=== PATIENT | female | born 1975 | race Caucasian/White ===

== ENCOUNTER 2017-03-08 03:20 | Emergency (ER) | payer OTHER ==
[~2017-03-08] VITALS: Ht 152.4 cm; Wt 40.9 kg
[~2017-03-08 03:20] MED LIST: AMOXICILLIN 50500 MG PO; CEPHALEXIN250 M1 PO; D-31000 IU PO; DOXYCYCLINE 10100 MG PO; FLEXERIL 1010 MG/TAB PO; FLEXERIL5 MG PO; LORTAB 5/500 501 TAB PO; MAXALT5 MG PO; NAPROSYN500 MG PO; NO HOME MEDICATIONS; NORCO 325 MG-51 TAB PO; PEN-VEE K500 MG PO; PHENERGAN 25 TA25 MG PO; PREDNISONE20 MG PO; PRENATAL1 TA2 PO; PROAIR HFA0.09 MG/AC IH; PROVENTIL0.09 MG/A1 IH; ULTRAM 50MG TAB50 MG PO; VENTOLIN0.09 MG IH; VICODIN 5/5001 UDTAB PO; ZITHROMAX Z PA250 MG PO; ZOFRAN 4MG T4 MG/TAB PO
[2017-03-08 03:21] VITALS: TEMP 98
[2017-03-08 03:51] LABS: BASO # 0.1 (0.0-0.2); BASO % 0.9 % (0.0-2.0); EOS % 0.3 % (0-4.0); GRAN # 3.8 (1.4-6.5); HEMOGLOBIN 12.4 g/dl (12.5-16.0); LYMPH # 4.9 (1.2-3.4); LYMPH % 50.4 % (20.0-51.0); MEAN CELL VOLUME 93 fl (80.0-100.0); MEAN CORPUSCULAR HEMOGLOBIN 31 pg (27.0-31.0); MEAN CORPUSCULAR HGB CONC 34 g/dl (33.0-37.0); MEAN PLATELET VOLUME 10.7 fl (7.4-10.4); MONO # 0.9 (0.1-0.6); MONO % 9.3 % (1.7-9.3); PLATELET COUNT 299 K/mm3 (130-400); RED BLOOD COUNT 3.96 M/mm3 (4.10-5.30); REDCELL DISTRIBUTION WIDTH-CV 13.2 % (11.5-14.5); WHITE BLOOD COUNT 9.8 K/mm3 (4.8-10.8)
[2017-03-08 03:53] LABS: HEMATOCRIT 36.9 % (37.0-47.0)
[2017-03-08 04:02] LABS: ADJUSTED CALCIUM 8.7 mg/dL (8.4-10.2); ALANINE AMINOTRANSFERASE 20 U/L (9-52); ALBUMIN 4.3 gm/dL (3.5-5.0); ALKALINE PHOSPHATASE 92 U/L (50-136); ANION GAP 13 mmol/L (7-16); BILIRUBIN,TOTAL 0.6 mg/dL (0.0-1.0); BLOOD UREA NITROGEN 7 mg/dL (7-17); CALCIUM 8.9 mg/dL (8.4-10.2); CARBON DIOXIDE 26 mmol/L (22-30); CHLORIDE 103 mmol/L (98-107); CREATININE, serum 0.61 mg/dL (0.52-1.25); GLUCOSE 108 mg/dL (74-106); LIPASE 183 U/L (23-300); POTASSIUM 3.3 mmol/L (3.4-5.0); SODIUM 142 mmol/L (137-145); TOTAL PROTEIN 7.6 gm/dL (6.4-8.2)
[2017-03-08 04:11] LABS: PH 6 (5-8); SQUAMOUS EPITHELIAL 0-2 /hpf; URINE APPEARANCE Clear; URINE BACTERIA None Seen /hpf; URINE BILIRUBIN Negative (NEGATIVE); URINE BLOOD Negative (NEGATIVE); URINE COLOR Straw; URINE GLUCOSE Negative (NEGATIVE); URINE KETONE Negative (NEGATIVE); URINE RBC 0-2 /hpf; URINE UROBILINOGEN Negative (NEGATIVE); URINE WBC 0-2 /hpf
[2017-03-08 04:41] LABS: B-TYPE NATRIURETIC PEPTIDE 30 pg/mL (0-125); TROPONIN-I < 0.012 ng/mL (0.000-0.034)
[2017-03-08] MEDS ORDERED: NORCO 325 MG-51 TAB PO (05:29)
[2017-03-08 05:48] VITALS: BP 96/54; PULSE 63
== END 2017-03-08 05:53 | disposition home or self-care (01) ==
LOC: COL.ER 03:20
PROVIDERS: Emergency Medicine
DX: R07.89 Other chest pain (principal); R07.1 Chest pain on breathing; K50.90 Crohn's disease, unspecified, without complications; F17.210 Nicotine dependence, cigarettes, uncomplicated; R06.02 Shortness of breath
CPT/HCPCS: J1885; J3010

== ENCOUNTER 2017-10-22 03:50 | Emergency (ER) | payer OTHER ==
[~2017-10-22] VITALS: Ht 144.8 cm; Wt 39.1 kg
[2017-10-22 03:54] VITALS: BP 114/68; TEMP 100.1
[2017-10-22 04:22] LABS: INFLUENZA A NEGATIVE; INFLUENZA B NEGATIVE
[2017-10-22] MEDS ORDERED: TAMIFLU 75MG75 MG PO (04:46)
[2017-10-22 05:19] VITALS: PULSE 99
== END 2017-10-22 05:19 | disposition home or self-care (01) ==
LOC: COL.ER 03:50
PROVIDERS: Emergency Medicine
DX: J11.1 Influenza due to unidentified influenza virus with other respiratory manifestations (principal); J45.909 Unspecified asthma, uncomplicated; K50.90 Crohn's disease, unspecified, without complications; F17.210 Nicotine dependence, cigarettes, uncomplicated

== ENCOUNTER 2018-03-11 05:32 | Emergency (ER) | payer OTHER ==
[~2018-03-11 05:32] MED LIST changes: +TAMIFLU 75MG75 MG PO
[2018-03-11 05:40] VITALS: TEMP 96.9
[2018-03-11] MEDS ORDERED: FLEXERIL 1010 MG/TAB PO (05:55)
[2018-03-11 07:28] VITALS: BP 106/57; PULSE 66
== END 2018-03-11 07:28 | disposition home or self-care (01) ==
LOC: COL.ER 05:32
DX: M54.2 Cervicalgia (principal); J45.909 Unspecified asthma, uncomplicated; Z87.19 Personal history of other diseases of the digestive system

== ENCOUNTER 2018-10-15 07:43 | Emergency (ER) | payer OTHER ==
[~2018-10-15] VITALS: Ht 144.8 cm; Wt 39.5 kg
[2018-10-15 07:48] VITALS: TEMP 97.8
[2018-10-15 08:26] VITALS: BP 112/55; PULSE 69
== END 2018-10-15 08:29 | disposition home or self-care (01) ==
LOC: COL.ER 07:43
DX: S20.211A Contusion of right front wall of thorax, initial encounter (principal); J45.909 Unspecified asthma, uncomplicated; K50.90 Crohn's disease, unspecified, without complications; F17.210 Nicotine dependence, cigarettes, uncomplicated; X50.0XXA Overexertion from strenuous movement or load, initial encounter

== ENCOUNTER 2019-04-15 08:11 | Emergency (ER) | payer OTHER ==
[~2019-04-15] VITALS: Ht 154.9 cm; Wt 40.9 kg
[2019-04-15 08:15] VITALS: BP 111/67; TEMP 98.6
[2019-04-15] MEDS ORDERED: AMOXICILLIN 8751 TAB PO (08:33)
[2019-04-15 08:52] VITALS: PULSE 70
== END 2019-04-15 08:52 | disposition home or self-care (01) ==
LOC: COL.ER 08:11
DX: K02.9 Dental caries, unspecified (principal)

== ENCOUNTER 2020-08-05 16:05 | Emergency (ER) | payer SELFPAY ==
[~2020-08-05] VITALS: Ht 154.9 cm; Wt 40.5 kg
[~2020-08-05 16:05] MED LIST changes: +AMOXICILLIN 8751 TAB PO
[2020-08-05 16:17] VITALS: BP 124/79; TEMP 98.6
[2020-08-05 17:58] VITALS: PULSE 82
== END 2020-08-05 17:59 | disposition home or self-care (01) ==
LOC: COL.ER 16:05
DX: R06.02 Shortness of breath (principal); Z20.828 Contact with and (suspected) exposure to other viral communicable diseases
CPT/HCPCS: J8540

== ENCOUNTER 2021-05-02 07:59 | Emergency (ER) | payer SELFPAY ==
[~2021-05-02] VITALS: Ht 154.9 cm; Wt 38.6 kg
[2021-05-02 08:09] VITALS: TEMP 98.5
[2021-05-02 08:31] LABS: COLLECTION METHOD CLEAN CATCH
[2021-05-02 08:40] LABS: MUCOUS Present /lpf; PH 6 (5-8); URINE APPEARANCE Hazy; URINE BACTERIA None Seen /hpf; URINE BILIRUBIN Negative (NEGATIVE); URINE BLOOD 1+ (NEGATIVE); URINE COLOR Yellow; URINE GLUCOSE Negative (NEGATIVE); URINE KETONE Negative (NEGATIVE); URINE LEUKOCYTE ESTERASE Negative (NEGATIVE); URINE NITRATE Negative (NEGATIVE); URINE PROTEIN(semi-quant) 1+ (NEGATIVE); URINE UROBILINOGEN >=4.0 mg/dL (NEGATIVE)
[2021-05-02 08:41] LABS: BASO # 0.1 (0.0-0.2); GRAN # 2.9 (1.4-6.5); GRAN % 55.7 % (42.2-75.2); HEMOGLOBIN 12.4 g/dl (12.5-16.0); LYMPH # 1.8 (1.2-3.4); LYMPH % 34.4 % (20.0-51.0); MEAN CELL VOLUME 91 fl (80.0-100.0); MEAN CORPUSCULAR HEMOGLOBIN 31 pg (27.0-31.0); MEAN CORPUSCULAR HGB CONC 34 g/dl (33.0-37.0); MEAN PLATELET VOLUME 10.7 fl (7.4-10.4); MONO # 0.4 (0.1-0.6); MONO % 8.5 % (1.7-9.3); PLATELET COUNT 283 K/mm3 (130-400); RED BLOOD COUNT 4.07 M/mm3 (4.10-5.30); REDCELL DISTRIBUTION WIDTH-CV 12.8 % (11.5-14.5)
[2021-05-02 09:05] LABS: ALBUMIN 4.2 gm/dL (3.5-5.0); BILIRUBIN,TOTAL 0.3 mg/dL (0.0-1.0); CALCIUM 8.7 mg/dL (8.4-10.2); CREATININE, serum 0.62 (0.52-1.25); TOTAL PROTEIN 7.7 gm/dL (6.4-8.2)
[2021-05-02 09:09] LABS: POTASSIUM 2.9 mmol/L (3.4-5.0)
[2021-05-02] MEDS ORDERED: PEPCID 20MG TAB20 MG PO (11:54)
[2021-05-02] MEDS ORDERED: ZOFRAN ODT4 MG PO (11:54)
[2021-05-02 12:10] VITALS: BP 116/60; PULSE 80
== END 2021-05-02 12:15 | disposition home or self-care (01) ==
LOC: COL.ER 07:59
PROVIDERS: Emergency Medicine
DX: E87.6 Hypokalemia (principal); J45.909 Unspecified asthma, uncomplicated; Z32.02 Encounter for pregnancy test, result negative
CPT/HCPCS: J2405; J7120

== ENCOUNTER 2021-05-09 12:18 | Emergency (ER) | payer SELFPAY ==
[~2021-05-09] VITALS: Ht 154.9 cm; Wt 38.2 kg
[~2021-05-09 12:18] MED LIST changes: +PEPCID 20MG TAB20 MG PO; +ZOFRAN ODT4 MG PO
[2021-05-09 12:24] VITALS: TEMP 98
[2021-05-09 12:52] LABS: HEMATOCRIT 38.4 % (37.0-47.0); HEMOGLOBIN 12.9 g/dl (12.5-16.0); MEAN CELL VOLUME 89 fl (80.0-100.0); MEAN CORPUSCULAR HEMOGLOBIN 30 pg (27.0-31.0); MEAN CORPUSCULAR HGB CONC 34 g/dl (33.0-37.0); MEAN PLATELET VOLUME 10.6 fl (7.4-10.4); PLATELET COUNT 344 K/mm3 (130-400); RED BLOOD COUNT 4.31 M/mm3 (4.10-5.30); REDCELL DISTRIBUTION WIDTH-CV 12.6 % (11.5-14.5)
[2021-05-09 12:57] LABS: COLLECTION METHOD CLEAN CATCH
[2021-05-09 13:03] LABS: ALBUMIN 4.4 gm/dL (3.5-5.0); BILIRUBIN,TOTAL 0.6 mg/dL (0.0-1.0); CALCIUM 9.2 mg/dL (8.4-10.2); CREATININE, serum 0.62 (0.52-1.25); POTASSIUM 3.5 mmol/L (3.4-5.0); TOTAL PROTEIN 8.3 gm/dL (6.4-8.2)
[2021-05-09 13:10] LABS: PH 6 (5-8); URINE APPEARANCE Clear; URINE COLOR Yellow; URINE PROTEIN(semi-quant) 1+ (NEGATIVE)
[2021-05-09 13:11] LABS: URINE BILIRUBIN Negative (NEGATIVE); URINE BLOOD 1+ (NEGATIVE); URINE GLUCOSE Negative (NEGATIVE); URINE KETONE 1+ (NEGATIVE); URINE LEUKOCYTE ESTERASE Negative (NEGATIVE); URINE NITRATE Negative (NEGATIVE); URINE UROBILINOGEN Negative (NEGATIVE)
[2021-05-09 13:12] LABS: MUCOUS Present /lpf; URINE RBC 0-2 /hpf
[2021-05-09 13:13] LABS: URINE BACTERIA Occasional /hpf
[2021-05-09 13:23] LABS: LYMPHOCYTE 42 % (20.0-51.0); METAMYELOCYTE 1 % (0-0); NEUTROPHILS 52 % (42.0-75.2); PLATELET ESTIMATE NORMAL (NORMAL)
[2021-05-09 14:15] LABS: COLLECTION METHOD CLEAN CATCH
[2021-05-09 14:26] LABS: MUCOUS Present /lpf; PH 6 (5-8); SQUAMOUS EPITHELIAL 0-2 /hpf; URINE APPEARANCE Clear; URINE BACTERIA None Seen /hpf; URINE BILIRUBIN Negative (NEGATIVE); URINE BLOOD Negative (NEGATIVE); URINE COLOR Yellow; URINE GLUCOSE Negative (NEGATIVE); URINE KETONE 1+ (NEGATIVE); URINE LEUKOCYTE ESTERASE Negative (NEGATIVE); URINE NITRATE Negative (NEGATIVE); URINE PROTEIN(semi-quant) Negative (NEGATIVE); URINE RBC 0-2 /hpf; URINE WBC 0-2 /hpf
[2021-05-09] MEDS ORDERED: PRIL40 PO (15:02)
[2021-05-09 15:35] VITALS: BP 128/35; PULSE 80
== END 2021-05-09 15:35 | disposition home or self-care (01) ==
LOC: COL.ER 12:18
PROVIDERS: Family Medicine; Physician Assistant
DX: K27.9 Peptic ulcer, site unspecified, unspecified as acute or chronic, without hemorrhage or perforation (principal); F17.200 Nicotine dependence, unspecified, uncomplicated; Z87.19 Personal history of other diseases of the digestive system; Z32.02 Encounter for pregnancy test, result negative
CPT/HCPCS: C9113; J7030; Q9967

== ENCOUNTER 2021-08-18 09:29 | Emergency (ER) | payer SELFPAY ==
[~2021-08-18] VITALS: Ht 154.9 cm; Wt 40.9 kg
[~2021-08-18 09:29] MED LIST changes: +PRIL40 PO
[2021-08-18 09:59] VITALS: BP 136/75; PULSE 76; TEMP 99
== END 2021-08-18 11:25 | disposition home or self-care (01) ==
LOC: COL.ER 09:29
DX: R51.9 Headache, unspecified (principal); K21.9 Gastro-esophageal reflux disease without esophagitis; F17.210 Nicotine dependence, cigarettes, uncomplicated; Z86.69 Personal history of other diseases of the nervous system and sense organs; Z79.899 Other long term (current) drug therapy
CPT/HCPCS: J0780; J1885

== ENCOUNTER 2021-09-03 07:00 | Emergency (ER) | payer SELFPAY ==
[~2021-09-03] VITALS: Ht 152.4 cm; Wt 40.9 kg
[2021-09-03 07:15] VITALS: TEMP 98.3
[2021-09-03 08:03] VITALS: BP 103/77; PULSE 76
== END 2021-09-03 08:04 | disposition home or self-care (01) ==
LOC: COL.ER 07:00
DX: U07.1 COVID-19 (principal); K21.9 Gastro-esophageal reflux disease without esophagitis; Z79.899 Other long term (current) drug therapy

== ENCOUNTER 2022-02-01 15:31 | Emergency (ER) | payer OTHER ==
[~2022-02-01] VITALS: Ht 154.9 cm; Wt 43.2 kg
[~2022-02-01 15:31] MED LIST changes: +PREDNISONE50 MG PO
[2022-02-01 16:45] VITALS: BP 124/64; PULSE 80; TEMP 98.3
[2022-02-01] MEDS ORDERED: CRUTCHES MC (16:52)
== END 2022-02-01 17:00 | disposition home or self-care (01) ==
LOC: COL.ER 15:31
DX: S93.402A Sprain of unspecified ligament of left ankle, initial encounter (principal); F17.200 Nicotine dependence, unspecified, uncomplicated; Z28.310 Unvaccinated for COVID-19; X50.1XXA Overexertion from prolonged static or awkward postures, initial encounter; W19.XXXA Unspecified fall, initial encounter

== ENCOUNTER 2022-05-07 20:17 | Emergency (ER) | payer OTHER ==
[~2022-05-07] VITALS: Ht 162.6 cm; Wt 44.5 kg
[~2022-05-07 20:17] MED LIST changes: +CRUTCHES MC
[2022-05-07 20:30] VITALS: TEMP 98.8
[2022-05-07 21:15] LABS: BASO # 0.1 K/mm3 (0.0-0.2); BASO % 0.5 % (0.0-2.0); EOS % 0.2 % (0.0-4.0); GRAN # 8.3 K/mm3 (1.4-6.5); GRAN % 68.5 % (42.2-75.2); HEMATOCRIT 37.2 % (37.0-47.0); HEMOGLOBIN 12.5 g/dl (12.5-16.0); LYMPH # 2.7 K/mm3 (1.2-3.4); LYMPH % 22.7 % (20.0-51.0); MEAN CELL VOLUME 93 fl (80.0-100.0); MEAN CORPUSCULAR HEMOGLOBIN 31 pg (27-31); MEAN CORPUSCULAR HGB CONC 34 g/dl (33.0-37.0); MEAN PLATELET VOLUME 9.9 fl (7.4-10.4); MONO % 7.9 % (1.7-9.3); PLATELET COUNT 289 K/mm3 (130-400); RED BLOOD COUNT 3.99 M/mm3 (4.10-5.30); REDCELL DISTRIBUTION WIDTH-CV 13.1 % (11.5-14.5)
[2022-05-07 21:38] LABS: ALBUMIN 3.9 gm/dL (3.5-5.0); CALCIUM 9.2 mg/dL (8.4-10.2); POTASSIUM 3.2 mmol/L (3.5-4.5); TOTAL PROTEIN 7.8 gm/dL (6.2-8.1)
[2022-05-07 21:58] LABS: CREATININE, serum 0.61 mg/dL (0.57-1.11)
[2022-05-07] MEDS ORDERED: AMOXICILLIN 50500 MG PO (22:21)
[2022-05-07] MEDS ORDERED: DOXYCYCLINE 10100 MG PO (22:21)
[2022-05-07 22:47] VITALS: BP 109/71; PULSE 78
== END 2022-05-07 22:50 | disposition home or self-care (01) ==
LOC: COL.ER 20:17
PROVIDERS: Physician Assistant
DX: J18.9 Pneumonia, unspecified organism (principal); F17.200 Nicotine dependence, unspecified, uncomplicated; Z20.822 Contact with and (suspected) exposure to COVID-19; Z28.310 Unvaccinated for COVID-19

== ENCOUNTER 2022-05-10 02:08 | Inpatient (IN) | payer OTHER ==
[~2022-05-10] VITALS: Ht 160 cm; Wt 37.2 kg
[2022-05-10 04:10] LABS: HEMOGLOBIN 12.3 g/dl (12.5-16.0); MEAN CELL VOLUME 92 fl (80.0-100.0); MEAN CORPUSCULAR HEMOGLOBIN 32 pg (27-31); MEAN CORPUSCULAR HGB CONC 34 g/dl (33.0-37.0); MEAN PLATELET VOLUME 10.2 fl (7.4-10.4); PLATELET COUNT 346 K/mm3 (130-400); REDCELL DISTRIBUTION WIDTH-CV 12.8 % (11.5-14.5)
[2022-05-10 04:22] LABS: BASOPHIL 1 % (0-2); EOSINOPHIL 1 % (0-4); LYMPHOCYTE 18 % (20.0-51.0); NEUTROPHILS 70 % (42.0-75.2); PLATELET ESTIMATE NORMAL (NORMAL)
[2022-05-10 04:23] LABS: BILIRUBIN,TOTAL 1.1 mg/dL (0.2-1.2); CALCIUM 9.7 mg/dL (8.4-10.2); CREATININE, serum 0.64 mg/dL (0.57-1.11); TOTAL PROTEIN 8.3 gm/dL (6.2-8.1)
[2022-05-10 04:24] LABS: POTASSIUM 2.9 mmol/L (3.5-4.5)
[2022-05-10 09:43] VITALS: BP 102/51; PULSE 84; TEMP 98.6
[2022-05-10 11:34] VITALS: BP 124/56; PULSE 65; TEMP 98.3
--- NOTE | 2022-05-10 11:40 | NUR ---
Pt. sitting up in bed. Pt. is a&OX3, assessment complete. IV to rt. ac patent, IV fluids infusing per orders. Pt. denies pain or other needs, call light within reach.
[2022-05-10 14:57] VITALS: BP 122/73; PULSE 84; TEMP 98
[2022-05-10 20:58] VITALS: BP 119/86; PULSE 93; TEMP 99
[2022-05-11] VITALS (7 sets, daily range): BP systolic 115–138; BP diastolic 55–74; PULSE 83–98; TEMP 97.7–99
[2022-05-11 06:29] LABS: HEMOGLOBIN 10.4 g/dl (12.5-16.0); MEAN CELL VOLUME 92 fl (80.0-100.0); MEAN CORPUSCULAR HEMOGLOBIN 31 pg (27-31); MEAN CORPUSCULAR HGB CONC 34 g/dl (33.0-37.0); MEAN PLATELET VOLUME 10.8 fl (7.4-10.4); PLATELET COUNT 350 K/mm3 (130-400); RED BLOOD COUNT 3.31 M/mm3 (4.10-5.30)
[2022-05-11 06:33] LABS: HEMATOCRIT 30.3 % (37.0-47.0)
[2022-05-11 06:49] LABS: ALBUMIN 3.2 gm/dL (3.5-5.0); CALCIUM 8.9 mg/dL (8.4-10.2); CREATININE, serum 0.54 mg/dL (0.57-1.11); MAGNESIUM 2.2 mg/dL (1.6-2.6); PHOSPHOROUS 2.8 mg/dL (2.3-4.7); POTASSIUM 3.1 mmol/L (3.5-4.5)
[2022-05-11 07:16] LABS: BAND 5 % (0-10); LYMPHOCYTE 3 % (20.0-51.0); NEUTROPHILS 89 % (42.0-75.2); PLATELET ESTIMATE NORMAL (NORMAL)
--- NOTE | 2022-05-11 07:56 | NUR ---
Pt doing okay this morning. Only complaints of pain is stomach muscles when she coughs. Pt has ordered breakfast which has arrived. Gave her fresh ice water, no other needs and no complaints at this time. Call light within reach, will continue to monitor
--- NOTE | 2022-05-11 13:00 | NUR ---
Pt doing well today. She has taken a shower and reports that she is starting to feel better. Pt has a lot of questions about how long will she still have a hard time catching her breath and how long the cough will last etc. Informed her that that would be a guess if someone told her when. Pt only coughs when asked to take deep breaths. No needs, will continue to monitor
--- NOTE | 2022-05-11 15:27 | NUR ---
Chef & Owner met with patient for intake assessment/discharge planning: Patient is alert and oriented, sitting up and watching TV, eating lunch. She is willing to speak to this Chef & Owner. 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 Her nephew lives with her and helps her with housekeeping, though she believes since he is now home alone "it's probably kind of messy with dog hair. My vaccuum is broken right now. He's a man." She states she is typically independent in her ADLs and IADLs, but she will need documentation for work. She has an upcoming initial appointment at [facility] for primary care on 05/13/2022, but she does not know if she'll be out of the hospital in time; she has an upcoming dental appointment at [facility], but also does not know if she'll make it due to her hospitalization. She is self-pay, and she utilizes [facility] at [facility] for any of her prescription needs. She may benefit from prescription assistance at discharge. She accepts a Patient Financial Application to assist in her hospital bill, and she is accepting on DPOA- paperwork. First, she wants to contact her brother Raman Hills , but would like to nominate him as her DPOA-HC. She verbalizes understanding of how to complete. Patient has no other question/concerns at this time, and is hopeful to return to home and then back to work. However, she is open to medical recommendation. She plans to contact both [facility] and [facility] tomorrow (Thursday) to confirm her upcoming appointments and see if they can be reschedule, as needed. *Discharge to home with prescription assistance, as needed, and work note*
--- NOTE | 2022-05-11 17:22 | NUR ---
PT denies any needs, aware that she will be staying 1-2 more days for antibiotics and steroids, all questions answered
[2022-05-12 04:12] VITALS: BP 128/65; PULSE 97; TEMP 98.6
--- NOTE | 2022-05-12 05:45 | NUR ---
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 PT COMPLAINED OF SOB. RT HAVE PT A BREATHING TREATMENT. PT FELT SHE WAS BREATHING BETTER. PT ALSO COMPLAINED OF INCREASED COUGH. PT GIVEN TESSALON PERLES AND ROBITUSSIN. PT FELT IT HELPED SOME. CALL LIGHT WITHIN REACH.
[2022-05-12 06:19] LABS: HEMOGLOBIN 10.3 g/dl (12.5-16.0); MEAN CELL VOLUME 93 fl (80.0-100.0); MEAN CORPUSCULAR HEMOGLOBIN 31 pg (27-31); MEAN CORPUSCULAR HGB CONC 33 g/dl (33.0-37.0); MEAN PLATELET VOLUME 10.9 fl (7.4-10.4); PLATELET COUNT 338 K/mm3 (130-400); RED BLOOD COUNT 3.35 M/mm3 (4.10-5.30); REDCELL DISTRIBUTION WIDTH-CV 13.2 % (11.5-14.5)
[2022-05-12 06:32] LABS: ALBUMIN 3.2 gm/dL (3.5-5.0); CALCIUM 8.6 mg/dL (8.4-10.2); CREATININE, serum 0.53 mg/dL (0.57-1.11); MAGNESIUM 2.2 mg/dL (1.6-2.6); PHOSPHOROUS 2.7 mg/dL (2.3-4.7); POTASSIUM 3.7 mmol/L (3.5-4.5)
[2022-05-12 07:11] VITALS: BP 139/81; PULSE 98; TEMP 98.1
[2022-05-12 07:49] LABS: BAND 4 % (0-10); LYMPHOCYTE 4 % (20.0-51.0); NEUTROPHILS 89 % (42.0-75.2); PLATELET ESTIMATE NORMAL (NORMAL)
--- NOTE | 2022-05-12 10:47 | NUR ---
PT SITTING UP IN BED. MORNING MEDICATIONS GIVEN. SHIFT ASSESSMENT COMPLETED. PT COMPLAINS OF SOB WHEN SITTING IN BED. CURRENTLY ON 1L VIA NC. DENIES ANY PAIN OR NEEDS. WILL CONTINUE TO MONITOR.
[2022-05-12 10:57] VITALS: BP 139/70; PULSE 107; TEMP 98
[2022-05-12 15:15] VITALS: BP 140/82; PULSE 105; TEMP 99.1
[2022-05-12 20:25] VITALS: BP 130/81; PULSE 113; TEMP 99.3
--- NOTE | 2022-05-12 21:58 | NUR ---
RECIEVED CALL FROM Al[facility]ia THAT PATIENT WAS TACHYCARDIC ON THE MONITOR. HAS BEEN 110'S-130'S. PATIENT NOT HAVING ANY CARDIAC RELATED ISSUES. IS WORKING PRETTY HARD TO BREATHE, DUE TO RHINOVIRUS/PNEUMONIA. PROVIDER (ROMI) AWARE. FLUIDS ORDERED. EKG ORDERED. NO FURTHER CONCERNS AT THIS TIME.
[2022-05-12 23:30] VITALS: BP 127/68; PULSE 129; TEMP 97.7
--- NOTE | 2022-05-12 23:58 | NUR ---
ON MIDNIGHT VITALS, PATIENT WITH AN O2 LEVEL OF 82 ON 2L NC. INCREASED O2 TO 6L, SATTING AT 90%. NOTIFIED RT AND PROVIDER (ROMI). RT STARTING AIRVO AND DRAWING ABG. ORDER FOR PORTABLE CHEST. WILL CONTINUE TO MONITOR CLOSELY.
[2022-05-13] VITALS (1200 sets, daily range): BP systolic 79–121; BP diastolic 52–78; PULSE 98–141; TEMP 97.3–98.9; O2SAT 91–100
[2022-05-13 00:19] LABS: ARTERIAL BLD GAS O2 SATURATION 90.4 % (92-100); ARTERIAL BLD GAS TCO2 CT 19.6; ARTERIAL BLOOD GAS BASE EXCESS -7.3 (-2-2); ARTERIAL BLOOD GAS HCO3 18.4 meq/L (22-26); ARTERIAL BLOOD GAS PCO2 38.1 mmHg (35-45); ARTERIAL BLOOD GAS PO2 65.7 mmHg (80-100)
--- NOTE | 2022-05-13 01:04 | NUR ---
RT WAS CALLED PTS ROOM. PTS SPO2 LEVELS FELL INTI THE 80'S. PT WAS PLACED ON A OXYMASK @ 15L, PT'S SPO2 LEVELS REMAINED IN THE 80'S. ORDERED TO OBTAIN A ANG AND PUT PT ON HIGH FLOW, (AIR VO).
--- NOTE | 2022-05-13 04:00 | NUR ---
PT ARRIVED TO ROOM FROM MEDICAL FLOOR VIA BED. ON BIPAP AND IN NOTABLE RESPIRATORY DISTRESS. HR IN 150'S. PULSE OXIMETRY GREATER THAN 95% ON BIPAP. PLAN TO INTUBATED PT, SETTING UP ROOM. DR. BEAN FROM ER TO INTUBATE AND WILL PLACE CENTRAL LINE. DAJA POWERS ON PHONE WITH PT'S SON TO GIVE CONSENT PER PT REQUEST.
--- NOTE | 2022-05-13 04:35 | NUR ---
PT TRANSFERRED TO ICU FOR FURTHER CARE.
--- NOTE | 2022-05-13 05:30 | NUR ---
PT INTUBATED AT [address] BEAN. OG TUBE PLACED SUBSEQUENTLY. PROPOFOL AND FENTANYL DRIPS INITIATED AT 0530. BILATERAL WRIST RESTRAINTS IN PLACE FOR PT SAFETY AND LINE PROTECTION. DUMONT CATHETER PLACED, CLEAR YELLOW URINE >300 RETURN. PT TOLERATED ALL PROCEDURES WELL. HEART RATE REMAINS TACHYCARDIC, DR. CANDELARIO FROM TELE ICU AWARE. ET TUBE ADJUSTED AFTER CHEST XRAY, OG TUBE PLACEMENT VERIFIED. DR. BEAN WAS UNABLE TO GET CENTRAL LINE, ATTEMPTED X3 STICKS IN RT GROIN. PRESSURE HELD AFTER FINAL ATTEMP AND FOAM TAPE DRESSING APPLIED. PT HAS PICC CONSULT IN ORDERS.
[2022-05-13 06:39] LABS: ALBUMIN 2.1 gm/dL (3.5-5.0); C-REACTIVE PROTEIN 4.15 mg/dL (0.00-0.50); CREATININE, serum 0.44 mg/dL (0.57-1.11); MAGNESIUM 1.6 mg/dL (1.6-2.6); PHOSPHOROUS 2.5 mg/dL (2.3-4.7)
[2022-05-13 06:41] LABS: CALCIUM 5.8 mg/dL (8.4-10.2); MEAN CORPUSCULAR HGB CONC 32 g/dl (33.0-37.0); MEAN PLATELET VOLUME 10.9 fl (7.4-10.4); PLATELET COUNT 291 K/mm3 (130-400); REDCELL DISTRIBUTION WIDTH-CV 13.5 % (11.5-14.5)
[2022-05-13 06:56] LABS: HEMATOCRIT 30.4 % (37.0-47.0); HEMOGLOBIN 9.6 g/dl (12.5-16.0); MEAN CELL VOLUME 98 fl (80.0-100.0); MEAN CORPUSCULAR HEMOGLOBIN 31 pg (27-31)
--- NOTE | 2022-05-13 07:00 | NUR ---
0700 BEDSIDE SHIFT REPORT GIVEN. PATIENT INTUBATED AND SEDATED. PATIENT ON CONTACT PERCAUTIONS. PATIENT HAS 1 PIV. AWAITING PICC TEAM. PATIENT HAS DUMONT AND RESTRAINT ORDERS WITH BILATERAL SOFT RESTRAINTS IN PLACE. PATIENT SEDATED BUT AWAKENS WHEN STIMULATED. DOES NOT FOLLOW PURPOSFUL COMMANDS. SKIN INTACT. VS STABLE. OG TUBE IN PLACE TO LIS.
[2022-05-13 07:17] LABS: BAND 7 % (0-10); NEUTROPHILS 88 % (42.0-75.2); PLATELET ESTIMATE NORMAL (NORMAL)
[2022-05-13 07:33] LABS: ARTERIAL BLOOD GAS BASE EXCESS -8.3 (-2-2); ARTERIAL BLOOD GAS pH 7.32 (7.35-7.45)
[2022-05-13 07:34] LABS: ARTERIAL BLOOD GAS PO2 226.2 mmHg (80-100)
[2022-05-13 09:33] LABS: CALCIUM 8.5 mg/dL (8.4-10.2); CREATININE, serum 0.61 mg/dL (0.57-1.11); POTASSIUM 4.1 mmol/L (3.5-4.5)
--- NOTE | 2022-05-13 10:30 | NUR ---
PATIENT INTUBATED AND SEDATED. BRONCH PERFORMED BY DR. FONTANA. PATIENT VITALS STABLE THROUGHOUT PROCEDURE. NO EXTRA SEDATION GIVEN. SPUTUM AND WASHING COLLECTED AND SENT TO LAB. TIME OUT PERFORMED BEFORE PROCEDURE. CONSENT OBTAINED BY FAMILY AND ON CHART.
--- NOTE | 2022-05-13 15:35 | NUR ---
Patient is currently on a ventilator. tradeshow worker contacted patient's brother, Raman Hills [phone] and confirmed that patient is not and does not have any children. Patient's next of kin is her mother, Angie #[phone].
--- NOTE | 2022-05-13 17:24 | NUR ---
SEDATION VACTION NOT PERFORMED AT THIS TIME. PATIENT ON MINIMAL SEDATION. PATIENT AGGRAVATED EAISILY.
--- NOTE | 2022-05-13 19:33 | NUR ---
PT RESTING COMFORTABLY. BVM AT HEAD OF BED ON FLOW METER. RAILS UP X3 VENT WHEELS LOCKED. HOB WAS NOT ELEVATED TO 30 DEGREES BUT WAS RAISED TO 30 DEGREES DURING MUSEUM ATTENDANT CHECK. RESTRAINTS SECURE. PT WAS ABLE TO NOD HEAD WHEN TOLD THAT SHE WAS GOING TO BE SUCTIONED. ABLE TO DO THIS MULTIPLE TIMES ON COMMAND. SHE APPEARS TO BE COMFORTABLE IN BED AT THIS TIME WATER RESEVOIR FULL
[2022-05-13 21:52] LABS: IMMUNOGLOBULIN A 320 mg/dL (65-421); IMMUNOGLOBULIN G 808 mg/dL (552-1631)
[2022-05-14] VITALS (1434 sets, daily range): BP systolic 106–134; BP diastolic 62–83; PULSE 80–100; TEMP 98.1–99.1; O2SAT 96–100
--- NOTE | 2022-05-14 02:13 | NUR ---
AMBU BAG AT HEAD OF BEAD. PT ABLE TO RESPOND INTERACT AND OPEN EYES. SHE IS RESTING COMFORTABLY. NO SIGNS OF DISTRESS. NO CONCERNS VOICED. RESTRAINTS ARE SECURE. RAILS UP X4. HI LOW IN APPROPRIATE RANGE. VENT WHEELS LOCKED. VENT TUBING SECURE. VENT CIRCUIT AND SUCTION ARE OUT OF REACH OF PT. VENT HOOKED UP TO RED OUTLET.
--- NOTE | 2022-05-14 02:53 | NUR ---
NO CHANGES FROM PRIOR CHECK. PT TOLERATING WELL. ABLE TO NOD HEAD TO QUESTIONS AND STATEMENTS. WILL CONTINUE TO MONITOR
--- NOTE | 2022-05-14 02:57 | NUR ---
UNABLE TO CHECK AT THIS TIME. CALLED TO ER FOR EMERGENCY. STOPPED BY ROOM AND DID A RAPID ASSESSMENT OF PT. NO SIGNS OF DISTRESS NO CONCERNS VOICED BY PT SUPERVISOR QUALITY CONTROL. PT IS STILL ABLE TO SOMEWHAT COMMUNICATE WITH HEAD NODS.
[2022-05-14 04:48] LABS: BASO % 0.1 % (0.0-2.0); GRAN # 17.1 K/mm3 (1.4-6.5); GRAN % 88.4 % (42.2-75.2); HEMATOCRIT 26.6 % (37.0-47.0); HEMOGLOBIN 8.7 g/dl (12.5-16.0); LYMPH # 1.1 K/mm3 (1.2-3.4); LYMPH % 5.8 % (20.0-51.0); MEAN CELL VOLUME 95 fl (80.0-100.0); MEAN CORPUSCULAR HEMOGLOBIN 31 pg (27-31); MEAN CORPUSCULAR HGB CONC 33 g/dl (33.0-37.0); MEAN PLATELET VOLUME 10.6 fl (7.4-10.4); MONO # 0.9 K/mm3 (0.1-0.6); MONO % 4.5 % (1.7-9.3); PLATELET COUNT 301 K/mm3 (130-400); RED BLOOD COUNT 2.81 M/mm3 (4.10-5.30); REDCELL DISTRIBUTION WIDTH-CV 13.7 % (11.5-14.5)
[2022-05-14 05:04] LABS: ARTERIAL BLD GAS O2 SATURATION 97.8 % (92-100); ARTERIAL BLD GAS TCO2 CT 19.5; ARTERIAL BLOOD GAS HCO3 18.6 meq/L (22-26); ARTERIAL BLOOD GAS PCO2 29.8 mmHg (35-45); ARTERIAL BLOOD GAS PO2 101.3 mmHg (80-100); ARTERIAL BLOOD GAS pH 7.41 (7.35-7.45)
[2022-05-14 05:06] LABS: ALBUMIN 2.5 gm/dL (3.5-5.0); CREATININE, serum 0.58 mg/dL (0.57-1.11); MAGNESIUM 2.2 mg/dL (1.6-2.6); PHOSPHOROUS 1.8 mg/dL (2.3-4.7); POTASSIUM 3.8 mmol/L (3.5-4.5)
--- NOTE | 2022-05-14 07:00 | NUR ---
REPORT RECEIVED FROM MIMI CUNNINGHAM. PT INTUBATED AND SEDATED AT THIS TIME. BILATERAL SOFT WRIST RESTRAINTS IN PLACE. NO S/S DISCOMFORT.
--- NOTE | 2022-05-14 17:49 | NUR ---
SEDATION NOT TITRATED DOWN FOR SEDATION VACATION. PT ABLE TO FOLLOW COMMANDS WHEN ASKED TO DO SO.
--- NOTE | 2022-05-14 21:13 | NUR ---
BEDSIDE SHIFT REPORT RECEIVED FROM MIMI LLANOS. PT CURRENTLY VENTED/SEDATED. ALL VENT SETTINGS ACCORDING TO REPORT. ALL LINES RUNNING ACCORDING TO REPORT (SEE DRIP FLOW SHEET). DUMONT DRAINING APPROPRIATELY. VSS. PTS SEDATION IS LIGHT, PT DENIES PAIN OR DISCOMFORT AT THIS TIME.
[2022-05-15] VITALS (1306 sets, daily range): BP systolic 115–145; BP diastolic 60–87; PULSE 60–124; TEMP 98–98.9; O2SAT 89–100
[2022-05-15 04:19] LABS: ARTERIAL BLD GAS O2 SATURATION 96.8 % (92-100); ARTERIAL BLD GAS TCO2 CT 25.3; ARTERIAL BLOOD GAS BASE EXCESS 0.4 (-2-2); ARTERIAL BLOOD GAS HCO3 24.2 meq/L (22-26); ARTERIAL BLOOD GAS PO2 87.4 mmHg (80-100); ARTERIAL BLOOD GAS pH 7.45 (7.35-7.45)
[2022-05-15 04:53] LABS: MEAN CELL VOLUME 94 fl (80.0-100.0); MEAN CORPUSCULAR HGB CONC 34 g/dl (33.0-37.0); PLATELET COUNT 282 K/mm3 (130-400); RED BLOOD COUNT 2.81 M/mm3 (4.10-5.30); REDCELL DISTRIBUTION WIDTH-CV 13.8 % (11.5-14.5)
[2022-05-15 05:06] LABS: HEMATOCRIT 26.3 % (37.0-47.0); HEMOGLOBIN 8.9 g/dl (12.5-16.0); MEAN CORPUSCULAR HEMOGLOBIN 32 pg (27-31)
[2022-05-15 05:12] LABS: ALBUMIN 2.5 gm/dL (3.5-5.0); CALCIUM 8.2 mg/dL (8.4-10.2); CREATININE, serum 0.52 mg/dL (0.57-1.11); MAGNESIUM 2.1 mg/dL (1.6-2.6); PHOSPHOROUS 1.6 mg/dL (2.3-4.7); POTASSIUM 3.6 mmol/L (3.5-4.5)
[2022-05-15 06:15] LABS: LYMPHOCYTE 8 % (20.0-51.0); NEUTROPHILS 91 % (42.0-75.2)
[2022-05-15 06:21] LABS: NUCLEATED RED BLOOD CELL 2 (0-6); PLATELET ESTIMATE NORMAL (NORMAL)
--- NOTE | 2022-05-15 10:29 | NUR ---
BEDSIDE REPORT RECEIVED FROM MIMI NICKERSON. PT IS LAYING IN BED, ON VENTILATOR. ALL LINE AND TUBE PLACEMENTS CHECKED AND VERIFIED, DRIP RATES VERIFIED. PT IS ALERT AND ORIENTED, DENIES ANY PAIN. PT USES CALL LIGHT FOR NEEDS.
[2022-05-15 14:03] LABS: ANA SCREEN with REFLEX Negative (Negative)
--- NOTE | 2022-05-15 14:56 | NUR ---
PT EXTUBATED WITH NO ISSUES. PT ON 3LPM OM. WILL CONTINUE TO MONITOR.
[2022-05-15 17:43] LABS: EBV NUCLEAR ANTIGEN IGG Positive (Negative)
[2022-05-15 17:46] LABS: EBV EARLY ANTIGEN IGG Negative (Negative)
[2022-05-15 17:51] LABS: EBV IGM AB Negative (Negative)
--- NOTE | 2022-05-15 21:40 | NUR ---
BEDSIDE SHIFT REPORT RECEIVED FROM MIMI DAY. PT CURRENTLY RESTING IN BED. NO C/O PAIN OR DISCOMFORT. ALL LINES RUNNING ACCORDING TO REPORT (SEE DRIP FLOW SHEET). DUMONT DRAINING APPROPRIATELY. VSS. NO ACUTE CHANGES AT THIS TIME
[2022-05-15 23:16] LABS: ARTERIAL BLD GAS O2 SATURATION 94.5 % (92-100); ARTERIAL BLD GAS TCO2 CT 27.8; ARTERIAL BLOOD GAS BASE EXCESS 0.2 (-2-2); ARTERIAL BLOOD GAS HCO3 26.3 meq/L (22-26); ARTERIAL BLOOD GAS PCO2 49.2 mmHg (35-45); ARTERIAL BLOOD GAS PO2 80.2 mmHg (80-100); ARTERIAL BLOOD GAS pH 7.35 (7.35-7.45)
[2022-05-16] VITALS (1116 sets, daily range): BP systolic 97–151; BP diastolic 65–102; PULSE 67–134; TEMP 98.2–99.1; O2SAT 74–100
[2022-05-16 01:12] LABS: ARTERIAL BLD GAS O2 SATURATION 94.7 % (92-100); ARTERIAL BLOOD GAS BASE EXCESS 0.7 (-2-2); ARTERIAL BLOOD GAS HCO3 26.5 meq/L (22-26); ARTERIAL BLOOD GAS PCO2 47.5 mmHg (35-45); ARTERIAL BLOOD GAS PO2 76.9 mmHg (80-100); ARTERIAL BLOOD GAS pH 7.36 (7.35-7.45)
[2022-05-16 04:49] LABS: MEAN CELL VOLUME 95 fl (80.0-100.0); MEAN CORPUSCULAR HGB CONC 33 g/dl (33.0-37.0); MEAN PLATELET VOLUME 10.4 fl (7.4-10.4); PLATELET COUNT 289 K/mm3 (130-400); RED BLOOD COUNT 2.88 M/mm3 (4.10-5.30); REDCELL DISTRIBUTION WIDTH-CV 13.9 % (11.5-14.5)
[2022-05-16 05:05] LABS: CREATININE, serum 0.47 mg/dL (0.57-1.11); MAGNESIUM 2.1 mg/dL (1.6-2.6); POTASSIUM 4.3 mmol/L (3.5-4.5)
[2022-05-16 05:33] LABS: HEMATOCRIT 27.3 % (37.0-47.0); HEMOGLOBIN 8.9 g/dl (12.5-16.0); MEAN CORPUSCULAR HEMOGLOBIN 31 pg (27-31)
[2022-05-16 05:39] LABS: BAND 4 % (0-10); LYMPHOCYTE 3 % (20.0-51.0); NEUTROPHILS 90 % (42.0-75.2); NUCLEATED RED BLOOD CELL 2 (0-6); PLATELET ESTIMATE NORMAL (NORMAL)
[2022-05-16 05:40] LABS: ANISOCYTOSIS 1+
[2022-05-16 13:47] LABS: CYTOMEGALOVIRUS DNA PCR Not Detected (()); CYTOMEGALOVIRUS DNA PCR LOG Not Detected (())
--- NOTE | 2022-05-16 20:38 | NUR ---
patient awakens easily calm and relaxed, asking for food, patient on clear liquid diet feeding self currently, 15 gcs can answer all questioning appropriately. calm smiling
[2022-05-17] VITALS (1157 sets, daily range): BP systolic 102–120; BP diastolic 67–79; PULSE 75–110; TEMP 98–99.5; O2SAT 77–100
[2022-05-17 05:53] LABS: ARTERIAL BLD GAS O2 SATURATION 97.9 % (92-100); ARTERIAL BLOOD GAS BASE EXCESS 8.4 (-2-2); ARTERIAL BLOOD GAS HCO3 31.8 meq/L (22-26); ARTERIAL BLOOD GAS PCO2 39.2 mmHg (35-45); ARTERIAL BLOOD GAS PO2 94.7 mmHg (80-100); ARTERIAL BLOOD GAS pH 7.53 (7.35-7.45)
[2022-05-17 06:11] LABS: HEMOGLOBIN 10.6 g/dl (12.5-16.0); MEAN CELL VOLUME 92 fl (80.0-100.0); MEAN CORPUSCULAR HEMOGLOBIN 31 pg (27-31); MEAN CORPUSCULAR HGB CONC 33 g/dl (33.0-37.0); MEAN PLATELET VOLUME 10.5 fl (7.4-10.4); PLATELET COUNT 270 K/mm3 (130-400); RED BLOOD COUNT 3.46 M/mm3 (4.10-5.30); REDCELL DISTRIBUTION WIDTH-CV 13.1 % (11.5-14.5)
[2022-05-17 06:34] LABS: ALBUMIN 2.9 gm/dL (3.5-5.0); BILIRUBIN,TOTAL 0.8 mg/dL (0.2-1.2); C-REACTIVE PROTEIN 4.59 mg/dL (0.00-0.50); CALCIUM 8.5 mg/dL (8.4-10.2); CREATININE, serum 0.57 mg/dL (0.57-1.11); MAGNESIUM 2.3 mg/dL (1.6-2.6); PHOSPHOROUS 2.6 mg/dL (2.3-4.7); POTASSIUM 3.5 mmol/L (3.5-4.5); TOTAL PROTEIN 6.5 gm/dL (6.2-8.1)
[2022-05-17 06:39] LABS: HEMATOCRIT 31.8 % (37.0-47.0)
[2022-05-17 07:20] LABS: BAND 2 % (0-10); BASOPHIL 2 % (0-2); LYMPHOCYTE 8 % (20.0-51.0); NEUTROPHILS 83 % (42.0-75.2); PLATELET ESTIMATE NORMAL (NORMAL)
[2022-05-17 07:22] LABS: HYPOCHROMIA 1+
--- NOTE | 2022-05-17 08:02 | NUR ---
BEDSIDE REPORT RECEIVED FROM MIMI GRIFFIN. PT IS RESTING IN BED. NO MEDS INFUSING AT THIS TIME. O2 AT 2L PER NC TO KEEP SATS ABOVE 92%. DUMONT CATHETER IN PLACE TO DEPENDENT DRAINAGE. PT DENIES NEEDS AT THIS TIME, CALL LIGHT IN REACH.
[2022-05-17 08:12] LABS: ALTERNARIA TEN ALLERGN IGE CNT <0.10 kU/L (()); ASPERGILLUS FUM ALLR IGE COUNT <0.10 kU/L (()); BERMUDA GRASS ALLERGEN IGE CNT <0.10 kU/L (()); BLUEGRASS ALLERGEN CNT <0.10 kU/L (()); DOG DANDER ALLERGEN IGE COUNT 0.24 kU/L (()); DUST MITES IGE (D.F.) COUNT <0.10 kU/L (()); DUST MT D.P. ALLERGN IGE COUNT <0.10 kU/L (()); ELM ALLERGEN IGE COUNT <0.10 kU/L (()); ENGLISH PLANTAIN ALLERGN COUNT <0.10 kU/L (()); OAK ALLERGEN IGE COUNT <0.10 kU/L (()); SHORT RAGWED ALLERGN IGE COUNT <0.10 kU/L (())
[2022-05-18] VITALS (1264 sets, daily range): BP systolic 97–120; BP diastolic 55–86; PULSE 81–112; TEMP 97.9–98.6; O2SAT 81–100
[2022-05-18 04:48] LABS: HEMOGLOBIN 10.6 g/dl (12.5-16.0); MEAN CELL VOLUME 92 fl (80.0-100.0); MEAN CORPUSCULAR HEMOGLOBIN 31 pg (27-31); MEAN CORPUSCULAR HGB CONC 34 g/dl (33.0-37.0); MEAN PLATELET VOLUME 10.2 fl (7.4-10.4); PLATELET COUNT 291 K/mm3 (130-400); RED BLOOD COUNT 3.38 M/mm3 (4.10-5.30)
[2022-05-18 04:57] LABS: HEMATOCRIT 31.2 % (37.0-47.0)
[2022-05-18 05:08] LABS: BAND 2 % (0-10); LYMPHOCYTE 3 % (20.0-51.0); NEUTROPHILS 95 % (42.0-75.2); PLATELET ESTIMATE NORMAL (NORMAL)
[2022-05-18 05:15] LABS: BILIRUBIN,TOTAL 0.8 mg/dL (0.2-1.2); CALCIUM 8.7 mg/dL (8.4-10.2); CREATININE, serum 0.59 mg/dL (0.57-1.11); PHOSPHOROUS 2.8 mg/dL (2.3-4.7); POTASSIUM 3.8 mmol/L (3.5-4.5); TOTAL PROTEIN 6.6 gm/dL (6.2-8.1)
--- NOTE | 2022-05-18 09:05 | NUR ---
RECEIVED BEDSIDE REPORT FROM MIMI GRIFFIN. PT IS RESTING IN BED AT THIS TIME. NO MEDS INFUSING. PT IS ON 1L O2 PER NC TO KEEP SATS ABOVE 92%. DUMONT CATHETER IN PLACE TO DEPENDENT DRAINAGE. PT DENIES NEEDS AT THIS TIME, CALL LIGHT IN REACH.
[2022-05-19] VITALS (804 sets, daily range): BP systolic 97–126; BP diastolic 58–81; PULSE 76–109; TEMP 98–99; O2SAT 50–100
[2022-05-19 04:46] LABS: HEMOGLOBIN 11.7 g/dl (12.5-16.0); MEAN CELL VOLUME 91 fl (80.0-100.0); MEAN CORPUSCULAR HEMOGLOBIN 31 pg (27-31); MEAN CORPUSCULAR HGB CONC 34 g/dl (33.0-37.0); MEAN PLATELET VOLUME 10.8 fl (7.4-10.4); PLATELET COUNT 347 K/mm3 (130-400); RED BLOOD COUNT 3.74 M/mm3 (4.10-5.30); REDCELL DISTRIBUTION WIDTH-CV 12.8 % (11.5-14.5)
[2022-05-19 04:50] LABS: HEMATOCRIT 34.1 % (37.0-47.0)
[2022-05-19 05:09] LABS: ALBUMIN 3.2 gm/dL (3.5-5.0); BILIRUBIN,TOTAL 0.7 mg/dL (0.2-1.2); CREATININE, serum 0.56 mg/dL (0.57-1.11); MAGNESIUM 2.2 mg/dL (1.6-2.6); PHOSPHOROUS 2.9 mg/dL (2.3-4.7); POTASSIUM 3.7 mmol/L (3.5-4.5); TOTAL PROTEIN 7.1 gm/dL (6.2-8.1)
[2022-05-19 05:10] LABS: LYMPHOCYTE 8 % (20.0-51.0); NEUTROPHILS 86 % (42.0-75.2); PLATELET ESTIMATE NORMAL (NORMAL)
[2022-05-19 05:29] LABS: THYROID STIMULATING HORMONE 0.7 uIU/mL (0.350-4.940)
--- NOTE | 2022-05-19 09:00 | NUR ---
PT ASSESSMENT COMPLETED. VSS. HR SLIGHTLY TACHY. PT IS ALERT AND ORIENTED. CALL LIGHT WITHIN REACH.
[2022-05-19] MEDS ORDERED: NORCO 325 MG-51 TAB PO ×2 (09:52)
--- NOTE | 2022-05-19 15:10 | NUR ---
GAVE REPORT TO MIMI RICHARDS ON THE MEDICAL FLOOR. PT LEFT ICU AT 1500 FOR MEDICAL FLOOR. PT SITUATED AND COMFORTABLE IN MEDICAL ROOM.
--- NOTE | 2022-05-19 15:18 | NUR ---
PT ADMITTED TO MEDICAL UNIT. ORIENTED PT TO ROOM. FAMILY AT BEDSIDE. WILL CONTINUE TO MONITOR.
[2022-05-20 00:21] VITALS: BP 120/69; PULSE 87; TEMP 98.7
[2022-05-20 04:59] VITALS: BP 103/65; PULSE 63; TEMP 98.7
--- NOTE | 2022-05-20 05:00 | NUR ---
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 PT RESTING IN BED TALKING TO FAMILY ON HER CELLPHONE. PT DENIED GENERAL PAIN, CHEST PAIN, PALPITATIONS, SOB, N,V,D OR DIZZINESS. PT HAD A PRETTY UNEVENTFUL NIGHT. HOWEVER, THIS MORNING PT STATED SHE'S HAD A FEW BOWEL MOVEMENTS SINCE AROUND 0400HRS. WILL CONTINUE TO MONITOR. PT EXPRESSED NO ADDITIONAL NEEDS AT THIS TIME. CALL LIGHT WITHIN REACH.
[2022-05-20 06:36] LABS: MEAN CELL VOLUME 94 fl (80.0-100.0); MEAN CORPUSCULAR HEMOGLOBIN 31 pg (27-31); MEAN CORPUSCULAR HGB CONC 33 g/dl (33.0-37.0); MEAN PLATELET VOLUME 11.1 fl (7.4-10.4); PLATELET COUNT 366 K/mm3 (130-400); RED BLOOD COUNT 3.83 M/mm3 (4.10-5.30); REDCELL DISTRIBUTION WIDTH-CV 13.1 % (11.5-14.5)
[2022-05-20 06:48] LABS: HEMATOCRIT 35.9 % (37.0-47.0)
[2022-05-20 06:50] LABS: ALBUMIN 2.9 gm/dL (3.5-5.0); CALCIUM 8.7 mg/dL (8.4-10.2); CREATININE, serum 0.61 mg/dL (0.57-1.11); PHOSPHOROUS 2.5 mg/dL (2.3-4.7); POTASSIUM 3.1 mmol/L (3.5-4.5)
--- NOTE | 2022-05-20 07:37 | NUR ---
CRITICAL WBC CALLED TO DAJA PATIÑO WHO READ BACK THE RESULTS.
[2022-05-20 07:46] LABS: LYMPHOCYTE 29 % (20.0-51.0); NEUTROPHILS 65 % (42.0-75.2)
[2022-05-20 07:48] LABS: POLYCHROMASIA 1+
[2022-05-20 07:51] VITALS: BP 115/63; PULSE 89; TEMP 98.6
[2022-05-20] MEDS ORDERED: PROAIR HFA0.09 MG/AC IH (08:42)
[2022-05-20] MEDS ORDERED: PREDNISONE10 MG PO (08:45)
--- NOTE | 2022-05-20 09:02 | NUR ---
PT REQUIRES NO SUPPLEMENTAL O2 WITH AMBULATION
[2022-05-20 11:45] VITALS: BP 109/66; PULSE 98; TEMP 98.1
--- NOTE | 2022-05-20 14:55 | NUR ---
Shift assessment preformed. Scheduled medications given. VSS. Patient A&O. Patient deemed for discharge. IV DC'd, catheter intact, no signs of phlebitis. Discharge education/instructions given. All questions answered. Patient denies any pain, discomfort, SOA, or further needs at this time. Patient ambulated from building, escorted by [facility] staff. Significant other transporting home.
== END 2022-05-20 14:30 | disposition home or self-care (01) | DRG 871 ==
LOC: COL.ER 02:08 → ICU 04:33 → MEDICAL 04:33 → ICU 05-13 03:16 → MEDICAL 05-19 14:57
PROVIDERS: Emergency Medicine; Internal Medicine; Internal Medicine Sleep Medicine; Nurse Practitioner Family; Student in an Organized Health Care Education/Training Program; ADMIT Student in an Organized Health Care Education/Training Program
PROC: 5A09357 Assistance with Respiratory Ventilation, Less than 24 Consecutive Hours, Continuous Positive Airway Pressure (ICD-10-PCS; 2022-05-12)
PROC: 0BH17EZ Insertion of Endotracheal Airway into Trachea, Via Natural or Artificial Opening (ICD-10-PCS; principal; 2022-05-13)
PROC: 5A1945Z Respiratory Ventilation, 24-96 Consecutive Hours (ICD-10-PCS; 2022-05-13)
PROC: 0B9D8ZX Drainage of Right Middle Lung Lobe, Via Natural or Artificial Opening Endoscopic, Diagnostic (ICD-10-PCS; 2022-05-13)
PROC: 02HV33Z Insertion of Infusion Device into Superior Vena Cava, Percutaneous Approach (ICD-10-PCS; 2022-05-13)
DX: A41.9 Sepsis, unspecified organism (principal); J18.9 Pneumonia, unspecified organism; J96.01 Acute respiratory failure with hypoxia; E87.2 Acidosis; J45.901 Unspecified asthma with (acute) exacerbation; K50.90 Crohn's disease, unspecified, without complications; B97.89 Other viral agents as the cause of diseases classified elsewhere; I08.1 Rheumatic disorders of both mitral and tricuspid valves; D64.9 Anemia, unspecified; E87.6 Hypokalemia; G43.909 Migraine, unspecified, not intractable, without status migrainosus; F17.210 Nicotine dependence, cigarettes, uncomplicated
CPT/HCPCS: A4314; A9284; C1751; C9113; J0456; J0610; J0692; J1650; J1940; J2060; J2405; J2543; J2704; J2920; J3010; J3475; J3480; J7030; J7050; J7060; J7120; J7512; J8540; Q9967

== ENCOUNTER 2023-07-12 08:32 | Emergency (ER) | payer OTHER ==
[~2023-07-12] VITALS: Ht 139.7 cm; Wt 45.5 kg
[~2023-07-12 08:32] MED LIST changes: +KLOR-CON20 MEQ PO; +PREDNISONE10 MG PO
[2023-07-12 08:38] VITALS: TEMP 98.6
[2023-07-12] MEDS ORDERED: PROAIR HFA0.09 MG/AC IH (09:56)
[2023-07-12 10:24] VITALS: BP 106/67; PULSE 85
[2023-07-14] MEDS ORDERED: AMOXICILLIN 8751 TAB PO (16:26)
[2023-07-14] MEDS ORDERED: PROVENTIL0.09 MG/A1 IH (16:26)
[2023-07-14] MEDS ORDERED: IPRATROPIUM BROM3 M1 IH (16:26)
[2023-07-14] MEDS ORDERED: NEB MC (16:26)
[2023-07-14] MEDS ORDERED: PREDNISONE50 MG PO (16:26)
== END 2023-07-12 10:34 | disposition home or self-care (01) ==
LOC: COL.ER 08:32
DX: J45.909 Unspecified asthma, uncomplicated (principal); F17.200 Nicotine dependence, unspecified, uncomplicated; Z79.51 Long term (current) use of inhaled steroids; Z20.822 Contact with and (suspected) exposure to COVID-19
CPT/HCPCS: J8540